=== PATIENT | female | born 2000 | race Caucasian/White ===

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

== ENCOUNTER 2018-02-23 17:52 | Emergency (ER) | payer OTHER ==
[~2018-02-23] VITALS: Ht 167.6 cm; Wt 90.9 kg
[~2018-02-23 17:52] MED LIST changes: +LAMOTRIGINE200 MG PO
[2018-02-23 18:28] LABS: HEMATOCRIT 41.9 % (36.0-46.0); HEMOGLOBIN 14.6 G/DL (11.9-15.5); MCH 29.5 PG (29.0-34.0); MCHC 34.8 G/DL (30.0-36.0); MCV 84.6 FL (83-99); PLATELET COUNT 296 K/uL (156-360); RBC DIS.WIDTH-CV 12.4 % (11.8-14.6); RBC DIS.WIDTH-SD 37.9 % (39-53); RED BLOOD COUNT 4.95 M/uL (3.80-5.20)
[2018-02-23 18:37] LABS: ALBUMIN 4.5 g/dL (3.2-4.8); CHLORIDE 105 mEq/L (99-109); POTASSIUM 3.5 mEq/L (3.7-5.4); SODIUM 136 mEq/L (136-147)
[2018-02-23 18:40] LABS: GLUCOSE 101 mg/dL (70-99); TOTAL PROTEIN 7.7 g/dL (6.4-8.3)
[2018-02-23 18:40] LABS: APPEARANCE CLEAR ((CLEAR)); BILIRUBIN NEGATIVE; BLOOD NEGATIVE; COLOR YELLOW ((YELLOW)); GLUCOSE (STRIP) NEGATIVE; KETONES NEGATIVE; LEUKOCYTES NEGATIVE; NITRITE NEGATIVE; PROTEIN (STRIP) 30; SPECIFIC GRAVITY 1.018 (1.000-1.030); UCUL ADDED? NO; UROBILINOGEN 0.2 MG/DL (0.2-1.0)
[2018-02-23 18:42] LABS: TOTAL BILIRUBIN 0.4 mg/dL (0.0-1.0)
[2018-02-23 18:43] LABS: ALKALINE PHOSPHATASE 70 IU/L (3-129); CREATININE 0.8 mg/dL (0.6-1.3); GFR ESTIMATE (CALCULATED) > 59 mL/min/
[2018-02-23 18:44] LABS: UREA NITROGEN (BUN) 13 mg/dL (9-23)
[2018-02-23 18:45] LABS: AST (GOT) 13 IU/L (2-34)
[2018-02-23 18:46] LABS: ALT (GPT) 16 IU/L (3-49)
[2018-02-23 18:52] LABS: QUANTITATIVE HCG < 4.0 MIU/ML
[2018-02-23 19:48] LABS: SOURCE URINE
[2018-02-23] MEDS ORDERED: ZOFRAN ODT4 MG PO (19:49)
[2018-02-23] MEDS ORDERED: KEFLEX500 MG PO (19:49)
[2018-02-23 20:14] VITALS: BP 99/63
[2018-02-25 14:14] LABS: CHLAMYDIA TRACHOMATIS NEGATIVE; NEISSERIA GONORRHOEAE NEGATIVE
== END 2018-02-23 20:15 | disposition home or self-care (01) ==
LOC: EME 17:52
PROVIDERS: Nurse Practitioner Family
DX: N12 Tubulo-interstitial nephritis, not specified as acute or chronic (principal); R50.9 Fever, unspecified; R10.30 Lower abdominal pain, unspecified; R00.0 Tachycardia, unspecified; Z87.440 Personal history of urinary (tract) infections; Z97.5 Presence of (intrauterine) contraceptive device
CPT/HCPCS: 74176; 80053; 81003; 83605; 84702; 85027; 87040; 87086; 87491; 87591; 99281; 99285; J0696; J1885; J2405; J7030